=== PATIENT | female | born 1985 | race African-American/Black ===

== ENCOUNTER 2019-06-20 04:59 | Inpatient (IN) | payer MEDICAID ==
[~2019-06-20] VITALS: Ht 162.6 cm; Wt 83.5 kg
[2019-06-20] MEDS ORDERED: DEXT 5%/LR + PITOCIN 20UNITS/L 1,000 ML IV SCH (05:27)
[2019-06-20] MEDS ORDERED: LACTATED RINGERS 1,000 ML IV SCH (05:27)
[2019-06-20] MEDS ORDERED: METHYLERGONOVINE MALEATE 0.2 MG/ML IM PRN (05:30)
[2019-06-20] MEDS ORDERED: NALOXONE HCL 0.4 MG/ML 1ML VIAL IM PRN (05:30)
[2019-06-20] MEDS ORDERED: CARBOPROST TROMETHAMINE 250 MCG/ML AMPUL IM PRN (05:30)
[2019-06-20] MEDS ORDERED: LIDOCAINE HCL/PF 1% 10 MG/ML 5ML VIAL ONE (05:35)
[2019-06-20] MEDS ORDERED: MIDAZOLAM HCL 2 MG/2 ML VIAL ONE (05:35)
[2019-06-20] MEDS ORDERED: FENTANYL CITRATE/PF 50MCG/ML 2ML VIAL ONE (05:35)
[2019-06-20] MEDS ORDERED: PROPOFOL 200MG/20ML VIAL IV ONE (05:35)
[2019-06-20] MEDS ORDERED: OXYTOCIN 10 UNITS/ML 1ML ONE ×2 (05:37→06:08)
[2019-06-20] MEDS ORDERED: SUCCINYLCHOLINE CHLORIDE 200MG/10ML IV ONE (05:37)
[2019-06-20 05:48] LABS: EOSINOPHILS % 0.3 % (0.0-5.0); HEMATOCRIT. 33.4 % (36.0-48.0); HEMOGLOBIN. 10.5 g/dL (12.0-16.0); LYMPHOCYTES % 27.1 % (20.0-50.0); MEAN CORPUSCULAR HEMOGLOBIN 21.3 pg (28.0-32.0); MEAN CORPUSCULAR VOLUME 67.6 fL (81.0-99.0); MEAN PLATELET VOLUME 9.2 fl (7.4-10.4); MONOCYTES % 7.3 % (2.0-8.0); NEUTROPHILS % 64.3 % (40.0-76.0); PLATELET 188 x1000/uL (130-400); RED BLOOD CELL COUNT 4.95 mill/uL (4.2-5.4); RED CELL DISTRIBUTION WIDTH 18.3 % (11.6-14.6)
[2019-06-20 05:53] LABS: CHLORIDE 104 mEq/L (98-107); INR 0.9; PARTIAL THROMBOPLASTIN TIME 21.1 sec (23.4-31.0); PROTHROMBIN TIME 9.4 sec (9.6-11.0)
[2019-06-20] MEDS ORDERED: ROCURONIUM BROMIDE 10MG/ML VIAL 5ML IV ONE (05:59)
[2019-06-20] MEDS ORDERED: ONDANSETRON HCL 4MG/2ML INJ ONE (05:59)
[2019-06-20] MEDS ORDERED: CEFAZOLIN SODIUM 1000MG/VIAL ONE (06:00)
[2019-06-20] MEDS ORDERED: METOCLOPRAMIDE HCL 10MG/2ML VIAL ONE (06:13)
[2019-06-20] MEDS ORDERED: NEOSTIGMINE METHYLSULFATE 1MG/ML 10 ML VIAL ONE (06:15)
[2019-06-20] MEDS ORDERED: GLYCOPYRROLATE 0.2 MG/ML 2ML VIAL ONE (06:15)
[2019-06-20 06:32] LABS: PLATELET ESTIMATE NORMAL
[2019-06-20 06:45] LABS: HEPATITIS B SURFACE ANTIGEN NEGATIVE
[2019-06-20] MEDS ORDERED: BISACODYL 10MG SUPP PR PRN (07:00)
[2019-06-20] MEDS ORDERED: IBUPROFEN 400MG TABLET PO PRN (07:00)
[2019-06-20] MEDS ORDERED: RHO(D) IMMUNE GLOBULIN 300 MCG/SYR IM PRN (07:00)
[2019-06-20] MEDS ORDERED: FENTANYL CITRATE/PF 50MCG/ML 2ML VIAL IV PRN (07:15)
[2019-06-20] MEDS ORDERED: ONDANSETRON HCL 4MG/2ML INJ IV PRN (07:15)
[2019-06-20] MEDS ORDERED: HYDROMORPHONE HCL/PF 2MG/ML CPJ IV PRN (07:15)
[2019-06-20] MEDS: HYDROMORPHONE HCL/PF 2MG/ML CPJ IM PRN ×3 (07:42→21:23)
[2019-06-20] MEDS ORDERED: LACTATED RINGERS IV SCH (08:00)
[2019-06-20] MEDS ORDERED: OXYTOCIN IV SCH (08:00)
[2019-06-20] MEDS ORDERED: METF-416 PO (08:02)
[2019-06-20 10:05] LABS: CLARITY URINE CLOUDY (CLEAR); COLOR URINE YELLOW (YELLOW); KETONES URINE 3+ (NEGATIVE); LEUKOCYTE ESTERASE URINE NEGATIVE (NEGATIVE); NITRITE URINE NEGATIVE (NEGATIVE); OCCULT BLOOD URINE 3+ (NEGATIVE); PH URINE 6.5 (4.5-8.0); PROTEIN URINE 2+ (NEGATIVE); SPECIFIC GRAVITY URINE 1.034 (1.005-1.030)
[2019-06-20 10:21] LABS: *BARBITURATES SCREEN URINE NEGATIVE (NEGATIVE); *BENZODIAZEPINES SCREEN URINE NEGATIVE (NEGATIVE); *COCAINE SCREEN URINE NEGATIVE (NEGATIVE); METHADONE URINE SCREEN NEGATIVE (NEGATIVE); OPIATES URINE SCREEN NEGATIVE (NEGATIVE)
[2019-06-20 10:22] LABS: *AMPHETAMINES SCREEN URINE NEGATIVE (NEGATIVE); CANNABINOID URINE SCREEN NEGATIVE (NEGATIVE); PHENCYCLIDINE URINE SCREEN NEGATIVE (NEGATIVE)
[2019-06-20 12:00] VITALS: BP 112/66
[2019-06-20 13:00] VITALS: BP 126/61
[2019-06-20 14:00] VITALS: BP 102/62
[2019-06-20 19:30] VITALS: BP 109/62
[2019-06-21] VITALS: BP 99/55
[2019-06-21 04:00] VITALS: BP 108/64
[2019-06-21] MEDS: IBUPROFEN 800MG TABLET PO PRN ×3 (05:38→18:01)
[2019-06-21 08:30] VITALS: BP 99/60
[2019-06-21] MEDS: METFORMIN HCL 500MG TABLET PO SCH ×2 (11:00→18:01)
[2019-06-21 11:28] LABS: BASOPHILS % 0.1 % (0.0-2.0); EOSINOPHILS % 0.1 % (0.0-5.0); HEMATOCRIT. 26.6 % (36.0-48.0); HEMOGLOBIN. 8.4 g/dL (12.0-16.0); LYMPHOCYTES % 14.1 % (20.0-50.0); MEAN CORPUSCULAR HEMOGLOBIN 21.3 pg (28.0-32.0); MEAN CORPUSCULAR VOLUME 67.1 fL (81.0-99.0); MEAN PLATELET VOLUME 9.1 fl (7.4-10.4); MONOCYTES % 7.5 % (2.0-8.0); NEUTROPHILS % 78.2 % (40.0-76.0); PLATELET 134 x1000/uL (130-400); RED BLOOD CELL COUNT 3.97 mill/uL (4.2-5.4); RED CELL DISTRIBUTION WIDTH 18.3 % (11.6-14.6)
[2019-06-21 15:24] VITALS: BP 118/73
[2019-06-21 22:00] VITALS: BP 124/74
[2019-06-22] VITALS: BP 116/70
[2019-06-22] MEDS: IBUPROFEN 800MG TABLET PO PRN ×4 (00:08→20:38)
[2019-06-22] MEDS: HYDROMORPHONE HCL/PF 2MG/ML CPJ IM PRN (03:15)
[2019-06-22 05:14] VITALS: BP 113/67
[2019-06-22 07:30] VITALS: BP 109/64
[2019-06-22] MEDS: METFORMIN HCL 500MG TABLET PO SCH ×2 (09:28→17:31)
[2019-06-22 14:00] VITALS: BP 110/62
[2019-06-22 19:36] VITALS: BP 125/85
[2019-06-23] MEDS ORDERED: HYDROCODONE/ACETAMINOPHEN 5/325MG TABLET PO PRN (01:00)
[2019-06-23 04:46] VITALS: BP 115/65
[2019-06-23] MEDS ORDERED: FERR325T6 MT (06:23)
[2019-06-23] MEDS ORDERED: IBUP-2030 PO (06:23)
[2019-06-23] MEDS ORDERED: MULT1TAB67 MT (06:23)
[2019-06-23 07:50] VITALS: BP 117/76
[2019-06-23] MEDS: IBUPROFEN 800MG TABLET PO PRN (08:59)
[2019-06-23] MEDS: METFORMIN HCL 500MG TABLET PO SCH (08:59)
== END 2019-06-23 11:57 | disposition home or self-care (01) | DRG 540 ==
LOC: INTOOBSV 04:59 → 8 EST LDRP 04:59 → OBSVTOIN 04:59 → 8EST 12:00
PROVIDERS: ADMIT Obstetrics & Gynecology; ATTEND Obstetrics & Gynecology
PROC: 10D00Z1 Extraction of Products of Conception, Low, Open Approach (ICD-10-PCS; principal; 2019-06-20)
DX: O76 Abnormality in fetal heart rate and rhythm complicating labor and delivery (principal); O45.93 Premature separation of placenta, unspecified, third trimester; O24.12 Pre-existing type 2 diabetes mellitus, in childbirth; E11.8 Type 2 diabetes mellitus with unspecified complications; O75.89 Other specified complications of labor and delivery; D64.9 Anemia, unspecified; O90.81 Anemia of the puerperium; Z37.0 Single live birth; Z3A.38 38 weeks gestation of pregnancy; Z79.84 Long term (current) use of oral hypoglycemic drugs; Z79.899 Other long term (current) drug therapy; Z83.3 Family history of diabetes mellitus; Z82.49 Family history of ischemic heart disease and other diseases of the circulatory system
CPT/HCPCS: 36415; 80053; 80305; 81003; 82947; 82962; 84550; 85025; 86592; 86703; 86762; 86850; 86900; 86920; 87340; 88307; 99281; J0330; J0690; J1170; J2250; J2405; J2590; J2704; J2710; J2765; J3010; J3490; J7120